=== PATIENT | female | born 1935 | race Caucasian/White ===

== ENCOUNTER 2020-03-14 12:16 | Inpatient (IN) | payer OTHER ==
[~2020-03-14] VITALS: Ht 160 cm; Wt 63.5 kg
[~2020-03-14 12:16] MED LIST: Avapro PO; HumaLOG 100 UNIT/1 ML (3ML) SUBCUTANEO; INTEGRA PLUS CAPSULE PO; Lantus 1000 U/10 ML SUBCUTANEO; Toprol Xl 25MG TAB PO
[2020-03-14] MEDS ORDERED: TOPROL XL25 M1 PO (12:36)
[2020-03-14] MEDS ORDERED: PLAVIX75 MG PO (12:37)
[2020-03-14] MEDS ORDERED: AMLODIPINE-OLM1 EAC2 PO (12:37)
[2020-03-14] MEDS ORDERED: ATORVASTATIN CA40 MG PO (12:38)
[2020-03-14] MEDS ORDERED: FOLIC ACID0.8 M1 PO (12:39)
[2020-03-14] MEDS ORDERED: CREON DR 24,001 EACH PO (12:41)
[2020-03-14] MEDS ORDERED: LANTUS SOL100 UNIT/1 (12:42)
[2020-03-14] MEDS ORDERED: HUMALOG100 UNIT/1 SUBCUTANEO (12:42)
== END 2020-03-18 14:14 | disposition home or self-care (01) | DRG 811 ==
LOC: ER 12:16 → EDBD 12:53 → SURH 16:12 → SURG 03-16 12:27 → SURH 03-16 12:31
PROVIDERS: ADMIT Internal Medicine
PROC: 30233N1 Transfusion of Nonautologous Red Blood Cells into Peripheral Vein, Percutaneous Approach (ICD-10-PCS; principal; 2020-03-14)
PROC: 0DB78ZX Excision of Stomach, Pylorus, Via Natural or Artificial Opening Endoscopic, Diagnostic (ICD-10-PCS; 2020-03-17)
DX: D64.9 Anemia, unspecified (principal); K26.4 Chronic or unspecified duodenal ulcer with hemorrhage; I10 Essential (primary) hypertension; E11.9 Type 2 diabetes mellitus without complications; G30.9 Alzheimer's disease, unspecified; F02.80 Dementia in other diseases classified elsewhere, unspecified severity, without behavioral disturbance, psychotic disturbance, mood disturbance, and anxiety; I25.10 Atherosclerotic heart disease of native coronary artery without angina pectoris; Z98.61 Coronary angioplasty status; Z74.01 Bed confinement status

== ENCOUNTER 2020-04-03 21:19 | Inpatient (IN) | payer OTHER ==
[~2020-04-03] VITALS: Ht 152.4 cm; Wt 54.4 kg
[~2020-04-03 21:19] MED LIST changes: +AMLODIPINE-OLM1 EAC2 PO; +ATORVASTATIN CA40 MG PO; +CREON DR 24,001 EACH PO; +FOLIC ACID0.8 M1 PO; +HUMALOG100 UNIT/1 SUBCUTANEO; +LANTUS SOL100 UNIT/1; +PLAVIX75 MG PO; +TOPROL XL25 M1 PO
[2020-04-03] MEDS ORDERED: FOLIC ACID1 MG PO (21:39)
[2020-04-03] MEDS ORDERED: DERMACINRX5000 UNIT PO (21:42)
[2020-04-03] MEDS ORDERED: VITAMIN C500 M6 PO (21:42)
== END 2020-04-27 17:50 | disposition home or self-care (01) | DRG 853 ==
LOC: ER 21:19 → MEDJ 04-04 10:36 → MEDI 04-04 10:36 → MEDJ 04-13 14:52
PROVIDERS: ADMIT Internal Medicine; ATTEND Internal Medicine
PROC: 8E0ZXY6 Isolation (ICD-10-PCS; 2020-04-06)
PROC: 02HV33Z Insertion of Infusion Device into Superior Vena Cava, Percutaneous Approach (ICD-10-PCS; 2020-04-06)
PROC: CP261ZZ Tomographic (Tomo) Nuclear Medicine Imaging of Pelvis using Technetium 99m (Tc-99m) (ICD-10-PCS; 2020-04-08)
PROC: 0DH63UZ Insertion of Feeding Device into Stomach, Percutaneous Approach (ICD-10-PCS; 2020-04-13)
PROC: 3E0G76Z Introduction of Nutritional Substance into Upper GI, Via Natural or Artificial Opening (ICD-10-PCS; 2020-04-13)
PROC: 0JB70ZZ Excision of Back Subcutaneous Tissue and Fascia, Open Approach (ICD-10-PCS; principal; 2020-04-20)
DX: A41.9 Sepsis, unspecified organism (principal); L89.153 Pressure ulcer of sacral region, stage 3; E87.0 Hyperosmolality and hypernatremia; B37.49 Other urogenital candidiasis; N17.9 Acute kidney failure, unspecified; Z74.01 Bed confinement status; G30.9 Alzheimer's disease, unspecified; F02.80 Dementia in other diseases classified elsewhere, unspecified severity, without behavioral disturbance, psychotic disturbance, mood disturbance, and anxiety; I10 Essential (primary) hypertension; Z95.5 Presence of coronary angioplasty implant and graft; I25.10 Atherosclerotic heart disease of native coronary artery without angina pectoris; E11.65 Type 2 diabetes mellitus with hyperglycemia; Z79.4 Long term (current) use of insulin; B95.62 Methicillin resistant Staphylococcus aureus infection as the cause of diseases classified elsewhere; E86.0 Dehydration; D64.9 Anemia, unspecified; I87.2 Venous insufficiency (chronic) (peripheral); Z85.07 Personal history of malignant neoplasm of pancreas; R13.19 Other dysphagia; R13.14 Dysphagia, pharyngoesophageal phase; Z66 Do not resuscitate; E87.6 Hypokalemia; E77.8 Other disorders of glycoprotein metabolism

== ENCOUNTER 2020-05-04 11:12 | Inpatient (IN) | payer OTHER ==
[~2020-05-04] VITALS: Ht 152.4 cm; Wt 49.9 kg
[~2020-05-04 11:12] MED LIST changes: +DERMACINRX5000 UNIT PO; +FOLIC ACID1 MG PO; +VITAMIN C500 M6 PO
== END 2020-05-09 18:21 | disposition home or self-care (01) | DRG 393 ==
LOC: ER 11:12 → MEDI 15:24
PROVIDERS: Colon & Rectal Surgery; ADMIT Internal Medicine; ATTEND Internal Medicine
PROC: 8E0ZXY6 Isolation (ICD-10-PCS; 2020-05-07)
PROC: 0DH68UZ Insertion of Feeding Device into Stomach, Via Natural or Artificial Opening Endoscopic (ICD-10-PCS; principal; 2020-05-07 10:00)
DX: K94.23 Gastrostomy malfunction (principal); L89.153 Pressure ulcer of sacral region, stage 3; I96 Gangrene, not elsewhere classified; B37.41 Candidal cystitis and urethritis; G30.0 Alzheimer's disease with early onset; F02.80 Dementia in other diseases classified elsewhere, unspecified severity, without behavioral disturbance, psychotic disturbance, mood disturbance, and anxiety; I10 Essential (primary) hypertension; R13.14 Dysphagia, pharyngoesophageal phase; B96.1 Klebsiella pneumoniae [K. pneumoniae] as the cause of diseases classified elsewhere; B95.61 Methicillin susceptible Staphylococcus aureus infection as the cause of diseases classified elsewhere; B95.2 Enterococcus as the cause of diseases classified elsewhere; B96.5 Pseudomonas (aeruginosa) (mallei) (pseudomallei) as the cause of diseases classified elsewhere; E11.9 Type 2 diabetes mellitus without complications; Z79.4 Long term (current) use of insulin

== ENCOUNTER → 2020-06-19 | Emergency (ER) | payer OTHER ==
[~2020-06-19] VITALS: Ht 152.4 cm; Wt 45.4 kg
== END | disposition home or self-care (01) ==
LOC: ER 09:43
DX: K94.23 Gastrostomy malfunction (principal); Z74.01 Bed confinement status

== ENCOUNTER 2020-06-20 15:25 | Emergency (ER) | payer OTHER ==
[~2020-06-20] VITALS: Ht 162.6 cm; Wt 45.4 kg
== END 2020-06-20 20:00 ==
LOC: ER 15:25
DX: K94.23 Gastrostomy malfunction (principal); Z20.828 Contact with and (suspected) exposure to other viral communicable diseases

== ENCOUNTER 2020-08-15 13:38 | Inpatient (IN) | payer OTHER ==
[~2020-08-15] VITALS: Ht 152.4 cm; Wt 40.8 kg
--- NOTE | 2020-08-15 14:20 | NUR ---
SE RECIBE PTE. FEMENINA EN AMBULANCIA AL LLAMARLA BUSCA QUIEN LA LLAMA NO VERBALIZA NADA, PTE. LLEGA CON FOLY DE HOGAR PTE. CON GASTROSTOMIA REF.CUIDADORA PTE. CON SANGRADO RECTAL LE REALIZARON LABORATORIOS Y SALIO BAJA PTE. ENQUILOZADA LLEGA DE HOGAR LEE EN CHRISTIANO NUEVO. SE LE REALIZA EKG SE PRESENTA A DR. ALBERT MEDICO EN TURNO PARA EVALUACION Y FIRMA SE UBICA PTE. EN UNIDAD DE CRITICO CAMA 1 SE CONECTA A MONITAOR CARDIACO Y OXIMETRIA DE PULSO. ACOMPANANTE DE PTE. NO SABIA MARK INFORMACION DE PTE. PTE. CON ULCERA EN TOLON PIES SALIMA DEDOS DE PIES INCHADOS.
--- NOTE | 2020-08-15 14:20 | NUR ---
SE RECIBE EN YOEL A PTE FEMINA DE 84ANOS CON DX DE HIPOTENCION, PTE ALERTA KYLE DESORIENTADA POR SANDRA DIMENSIONES, NO VERBALIZA. SE COLOCA EN YOEL 1 DE AREA DE CRITICO. SE OBSERVA PTE ANQUILOZADA, ULCERAS EN PIE SALIMA, AREA DE PRESION EN AREA SACRAL. SE OBSERVA FARLEY DE LA FECHA DE 07/25/2020 ORINA AMARILLA CON SEDIMENTACION. SE ERICK S/V Y SE REALIZA EKG POR PRIYANKA LLANES, SE MUESTRA A DR. MEJIA. SE CANALIZA EN MANO DERECHA CON ANGIO #20 Y SE TOBI MUETSRAS, VENUS ORDEN MEDICA UTILIZANOD MEDIDAS ASEPTICAS, IV FLUIDS DE .9NSS BAJANDO A 100ML/HR. SE COLOCA EN TELEMETRIA. SE OBSERVA MASTECTOMIA EN LADO SALIMA. SE COLOCA NELSON DE IDENTIFICACION EN BRAZO DERECHO. PERSONAL DE RADIOLOGIA SE LE REALIZA EL CHEST PORTABLE.
--- NOTE | 2020-08-15 15:41 | NUR ---
SE RECIBE PACIENTE EN CAMA CON BARANDAS ELEVADAS. AL MOMENTO PACIENTE ALERTA, DESORIENTADA EN LAS SANDRA ESFERAS. CONECTADA A MONITOR CARDIACO Y OXIMETRIA DE PULSO. VENOPUNCION PATENTE EN BRAZO DERECHO BAJANDO 0.9%NSS AT 100ML/HR. PACIENTE CON FOLLEY CATETER PATENTE EN VEGIJA DRENANDO 100ML DE ORINA AMARILLA INTENSO. SIGNOS VITALES TOMADOS Y REPORTADOS. PACIENTE CON ABG PENDIENTES LOS CUALES SE NOTIFICAN A PERSONAL DE TERAPIA RESPIRATORIA. CT ABDOMEN-PELVIS PENDIENTE. SE MANTIENE PACIENTE BAJO OBSERVACION CONTINUA POR CAMBIOS. BARANDAS ELEVADAS.
--- NOTE | 2020-08-15 16:36 | NUR ---
SE TOBI TUBOS PILOTOS PARA TYPE AND CROSSMATCH PARA 2 UNIDADES DE PRBC'S FRACCIONADA. REPORTADA A BANCO DE MAYRA. SE ERICK MUESTRA DE COVID MOLECULAR IN SE INSERTA TUBO NASOGASTRICO BAJO MEDIDAS ASEPTICAS. SE ADMINISTRA CONTRASTE POR BOCA PARA ESTUDIO CT. PACIENTE RESTRINGUIDA YA QUE LA MISMA INTENTA REMOVERSE TUBO. ORIENTADA SOBRE PROCEDIMIENTOS.
[2020-09-20] MEDS ORDERED: PROTONIX40 MG PO (14:52)
[2020-09-20] MEDS ORDERED: FOLIC ACID1 MG PO (14:52)
[2020-09-20] MEDS ORDERED: INTESTINEX680 M2 PO (14:52)
[2020-09-20] MEDS ORDERED: DERMACINRX5000 UNIT PO (14:52)
[2020-09-20] MEDS ORDERED: TOPROL XL25 M1 PO (14:52)
[2020-09-20] MEDS ORDERED: AMLODIPINE BESYL5 MG PO (14:52)
[2020-09-20] MEDS ORDERED: ATORVASTATIN CA40 MG PO (14:52)
[2020-09-20] MEDS ORDERED: LANTUS SOL100 UNIT/1 SUBCUTANEO (14:52)
== END 2020-09-21 18:09 | disposition home health service (06) | DRG 326 ==
LOC: ER 13:38 → ICU-2 17:12 → SURG 08-21 13:21 → SURH 08-23 14:26
PROVIDERS: ADMIT Internal Medicine; ATTEND Internal Medicine
PROC: 8E0ZXY6 Isolation (ICD-10-PCS; 2020-08-15)
PROC: 3E0336Z Introduction of Nutritional Substance into Peripheral Vein, Percutaneous Approach (ICD-10-PCS; 2020-08-15)
PROC: BW21ZZZ Computerized Tomography (CT Scan) of Abdomen and Pelvis (ICD-10-PCS; 2020-08-15)
PROC: B246ZZZ Ultrasonography of Right and Left Heart (ICD-10-PCS; 2020-08-16)
PROC: 02HV33Z Insertion of Infusion Device into Superior Vena Cava, Percutaneous Approach (ICD-10-PCS; 2020-08-16)
PROC: 3E0G76Z Introduction of Nutritional Substance into Upper GI, Via Natural or Artificial Opening (ICD-10-PCS; 2020-08-16)
PROC: 30233N1 Transfusion of Nonautologous Red Blood Cells into Peripheral Vein, Percutaneous Approach (ICD-10-PCS; 2020-08-16)
PROC: B54MZZZ Ultrasonography of Right Upper Extremity Veins (ICD-10-PCS; 2020-08-18)
PROC: 0DJ08ZZ Inspection of Upper Intestinal Tract, Via Natural or Artificial Opening Endoscopic (ICD-10-PCS; 2020-08-19)
PROC: 4A12X4Z Monitoring of Cardiac Electrical Activity, External Approach (ICD-10-PCS; 2020-08-21)
PROC: 05HB33Z Insertion of Infusion Device into Right Basilic Vein, Percutaneous Approach (ICD-10-PCS; 2020-08-23)
PROC: 0DP63UZ Removal of Feeding Device from Stomach, Percutaneous Approach (ICD-10-PCS; principal; 2020-08-31)
PROC: 0DH63UZ Insertion of Feeding Device into Stomach, Percutaneous Approach (ICD-10-PCS; 2020-08-31)
PROC: 3E0G76Z Introduction of Nutritional Substance into Upper GI, Via Natural or Artificial Opening (ICD-10-PCS; 2020-08-31)
PROC: 0JBR0ZZ Excision of Left Foot Subcutaneous Tissue and Fascia, Open Approach (ICD-10-PCS; 2020-09-05)
PROC: 0JBR0ZZ Excision of Left Foot Subcutaneous Tissue and Fascia, Open Approach (ICD-10-PCS; 2020-09-13)
DX: K62.5 Hemorrhage of anus and rectum (principal); L89.153 Pressure ulcer of sacral region, stage 3; K94.23 Gastrostomy malfunction; L97.428 Non-pressure chronic ulcer of left heel and midfoot with other specified severity; N17.8 Other acute kidney failure; N39.0 Urinary tract infection, site not specified; B95.62 Methicillin resistant Staphylococcus aureus infection as the cause of diseases classified elsewhere; E88.09 Other disorders of plasma-protein metabolism, not elsewhere classified; E77.8 Other disorders of glycoprotein metabolism; R13.14 Dysphagia, pharyngoesophageal phase; G30.8 Other Alzheimer's disease; F02.80 Dementia in other diseases classified elsewhere, unspecified severity, without behavioral disturbance, psychotic disturbance, mood disturbance, and anxiety; I25.10 Atherosclerotic heart disease of native coronary artery without angina pectoris; I11.9 Hypertensive heart disease without heart failure; D50.0 Iron deficiency anemia secondary to blood loss (chronic); E87.5 Hyperkalemia; E11.65 Type 2 diabetes mellitus with hyperglycemia; I95.89 Other hypotension; Z20.828 Contact with and (suspected) exposure to other viral communicable diseases; E86.0 Dehydration; K26.4 Chronic or unspecified duodenal ulcer with hemorrhage; B96.4 Proteus (mirabilis) (morganii) as the cause of diseases classified elsewhere; B96.1 Klebsiella pneumoniae [K. pneumoniae] as the cause of diseases classified elsewhere; B95.2 Enterococcus as the cause of diseases classified elsewhere; Z74.01 Bed confinement status; L89.610 Pressure ulcer of right heel, unstageable

== ENCOUNTER 2020-09-26 11:28 | Inpatient (IN) | payer OTHER ==
[~2020-09-26] VITALS: Ht 160 cm; Wt 61.2 kg
[~2020-09-26 11:28] MED LIST changes: +AMLODIPINE BESYL5 MG PO; +INTESTINEX680 M2 PO; +LANTUS SOL100 UNIT/1 SUBCUTANEO; +PROTONIX40 MG PO
[2020-11-23] MEDS ORDERED: KAYEXALATE15 GM/60 M PO (16:14)
[2020-11-23] MEDS ORDERED: KEPPRA500 MG PO (16:15)
[2020-11-23] MEDS ORDERED: INTEGRA PLUS C1 EACH PO (16:29)
[2020-11-23] MEDS ORDERED: ISORDIL10 MG PO (16:29)
[2020-11-23] MEDS ORDERED: PROTONIX40 MG PO (16:29)
[2020-11-23] MEDS ORDERED: INTESTINEX680 M1 PO (16:29)
[2020-11-23] MEDS ORDERED: FOLIC ACID1 MG PO (16:29)
[2020-11-23] MEDS ORDERED: VITAMIN D3125 MC2 PO (16:29)
== END 2020-11-23 22:08 | disposition home health service (06) | DRG 871 ==
LOC: ER 11:28 → ICU 18:41 → MEDI 10-10 20:15 → MEDJ 10-25 16:10 → MEDI 10-28 12:49
PROVIDERS: ADMIT Internal Medicine; ATTEND Internal Medicine
PROC: B24BZZZ Ultrasonography of Heart with Aorta (ICD-10-PCS; principal; 2020-09-26)
PROC: 4A033R1 Measurement of Arterial Saturation, Peripheral, Percutaneous Approach (ICD-10-PCS; 2020-09-26)
PROC: BW28ZZZ Computerized Tomography (CT Scan) of Head (ICD-10-PCS; 2020-09-26)
PROC: 02HV33Z Insertion of Infusion Device into Superior Vena Cava, Percutaneous Approach (ICD-10-PCS; 2020-09-27)
PROC: 0DH64UZ Insertion of Feeding Device into Stomach, Percutaneous Endoscopic Approach (ICD-10-PCS; 2020-09-28)
PROC: 0D20XUZ Change Feeding Device in Upper Intestinal Tract, External Approach (ICD-10-PCS; 2020-10-05)
PROC: 4A12X4Z Monitoring of Cardiac Electrical Activity, External Approach (ICD-10-PCS; 2020-10-10)
PROC: BW28ZZZ Computerized Tomography (CT Scan) of Head (ICD-10-PCS; 2020-10-12)
PROC: B34KZZZ Ultrasonography of Bilateral Upper Extremity Arteries (ICD-10-PCS; 2020-10-14)
PROC: 02HV33Z Insertion of Infusion Device into Superior Vena Cava, Percutaneous Approach (ICD-10-PCS; 2020-10-18)
PROC: B518ZZA Fluoroscopy of Superior Vena Cava, Guidance (ICD-10-PCS; 2020-10-18)
PROC: 02PYX3Z Removal of Infusion Device from Great Vessel, External Approach (ICD-10-PCS; 2020-10-18)
PROC: B34HZZZ Ultrasonography of Right Upper Extremity Arteries (ICD-10-PCS; 2020-10-19)
PROC: 30233N1 Transfusion of Nonautologous Red Blood Cells into Peripheral Vein, Percutaneous Approach (ICD-10-PCS; 2020-11-15)
DX: A41.1 Sepsis due to other specified staphylococcus (principal); L89.153 Pressure ulcer of sacral region, stage 3; T80.211A Bloodstream infection due to central venous catheter, initial encounter; I63.89 Other cerebral infarction; I50.23 Acute on chronic systolic (congestive) heart failure; R65.21 Severe sepsis with septic shock; L97.428 Non-pressure chronic ulcer of left heel and midfoot with other specified severity; E87.1 Hypo-osmolality and hyponatremia; E87.0 Hyperosmolality and hypernatremia; N17.8 Other acute kidney failure; G40.89 Other seizures; B37.49 Other urogenital candidiasis; G93.49 Other encephalopathy; T82.898A Other specified complication of vascular prosthetic devices, implants and grafts, initial encounter; Z74.01 Bed confinement status; G30.9 Alzheimer's disease, unspecified; F02.80 Dementia in other diseases classified elsewhere, unspecified severity, without behavioral disturbance, psychotic disturbance, mood disturbance, and anxiety; Z20.822 Contact with and (suspected) exposure to COVID-19; I48.91 Unspecified atrial fibrillation; E86.0 Dehydration; I25.10 Atherosclerotic heart disease of native coronary artery without angina pectoris; Z95.5 Presence of coronary angioplasty implant and graft; E11.65 Type 2 diabetes mellitus with hyperglycemia; I50.9 Heart failure, unspecified; E11.621 Type 2 diabetes mellitus with foot ulcer; Z79.4 Long term (current) use of insulin; I11.0 Hypertensive heart disease with heart failure; A49.01 Methicillin susceptible Staphylococcus aureus infection, unspecified site; D69.6 Thrombocytopenia, unspecified; R13.14 Dysphagia, pharyngoesophageal phase; Z66 Do not resuscitate; D64.9 Anemia, unspecified; Y84.8 Other medical procedures as the cause of abnormal reaction of the patient, or of later complication, without mention of misadventure at the time of the procedure; E87.5 Hyperkalemia; Z68.23 Body mass index [BMI] 23.0-23.9, adult; I69.391 Dysphagia following cerebral infarction